=== PATIENT | male | born 1965 | race Caucasian/White ===

== ENCOUNTER 2017-01-03 07:16 | Observation (INO) | payer OTHER ==
[2017-01-03 08:06] LABS: Hematocrit 39 % (42-52); Hemoglobin 13.1 g/dl (14.0-18.0); Mean Corpuscular HGB Conc 34 g/dl (31-36); Mean Corpuscular Hemoglobin 27 pg (27-31); Mean Corpuscular Volume 80 fL (80-94); Red Blood Count 4.82 10^6/ul (4.0-5.4); Red Cell Distribution Width 16 % (10.5-15); White Blood Count 4.9 10^3/ul (3.5-10.8)
[2017-01-03 08:10] LABS: Comments Flag Yes
[2017-01-03] MEDS ORDERED: Lisinopril TAB* 10 MG PO ONE (08:11)
[2017-01-03] MEDS ORDERED: Diltiazem CD CAP* 240 MG PO ONE (08:11)
[2017-01-03 08:12] LABS: Add Diff/Slide Review? Slide Review Added
[2017-01-03 08:26] LABS: Albumin 4.3 g/dL (3.2-5.2); BUN/Creatinine Ratio 16.5 (8-20); Calcium 9.1 mg/dL (8.6-10.3); EGFR African American 104.9 (>60); EGFR Non-African American 81.6 (>60); Globulin 1.9 g/dL (2-4); Magnesium 1.6 mg/dL (1.9-2.7); Potassium 3.8 mmol/L (3.5-5.0); Total Bilirubin 1.3 mg/dL (0.2-1.0); Total Protein 6.2 g/dL (6.4-8.9)
--- NOTE | 2017-01-03 08:26 | RAD ---
INDICATION: Near syncope. COMPARISON: Comparison is made with a prior chest x-ray study from December 18, 2015. TECHNIQUE: A portable view of the chest was obtained. FINDINGS: Cardiac and mediastinal contours appear to be within normal limits. The lungs are underinflated with minimal atelectasis at both lung bases. The lungs are otherwise clear. No pleural effusion is seen. IMPRESSION: NO EVIDENCE FOR ACUTE FINDING.
[2017-01-03 08:46] LABS: TSH (Thyroid Stimulating Horm) 1.39 mcIU/mL (0.34-5.60)
[2017-01-03 08:53] LABS: Urine Bacteria Absent (Absent); Urine Bilirubin Negative (Negative); Urine Glucose 2+(150 mg/dL) (Negative); Urine Nitrite Negative (Negative)
[2017-01-03 09:26] LABS: Mean Platelet Volume 7 um3 (7.4-10.4)
[2017-01-03] MEDS ORDERED: Docusate CAP* 100 MG PO PRN (09:40)
[2017-01-03] MEDS ORDERED: Polyethylene Glycol 3350* 17 GM PACKET PO PRN (09:41)
[2017-01-03] MEDS ORDERED: diPHENhydraMINE PO* 50 MG PO PRN (09:42)
[2017-01-03] MEDS ORDERED: Dexamethasone IV* 8 MG in NS 0.9% 50 ML* 50 ML IVPB ONE (10:30)
[2017-01-03] MEDS: Insulin GLARGINE(*) 1 UNITS UNIT SUBCUT SCH (11:37)
[2017-01-03] MEDS: Enoxaparin(*) 40 MG/0.4 ML SYR SUBCUT SCH (11:37)
[2017-01-03] MEDS: Acetaminophen TAB* 325 MG PO PRN ×2 (12:13→18:18)
[2017-01-03] MEDS: Diltiazem CD CAP* 240 MG PO SCH (12:23)
[2017-01-03] MEDS: glipiZIDE TAB* 5 MG PO SCH (12:27)
[2017-01-03] MEDS: Sertraline* 50 MG TAB PO SCH (12:28)
[2017-01-03] MEDS: Allopurinol TAB* 300 MG PO SCH (12:28)
[2017-01-03] MEDS: levETIRAcetam TAB* 500 MG PO SCH ×2 (12:29→21:34)
--- NOTE | 2017-01-03 15:47 | ECHO ---
Patient: ROEL HILL [facility] Rec#: [id number] : 1965 Date: 01/03/2017 Age: 51y Height: 182.88 cm / 72.0 in Weight: 101.6 kg / 223.9 lbs Sex: M BSA: 2.24 Room#: 432 Admit Date#: 01/03/2017 Type: Inpatient Referring: GORDON Corona Reading: Tyshawn Alvarez MD Clasp Machine Operator: Janice Dale [facility] Transthoracic Echocardiogram Indication: Syncope BP: 155/89 HR: 94 Rhythm: NSR Findings History: Glioblastoma with chemo,radiation rx, DM,HTN,gout,depression,seizures. Technical Comments: The study quality is fair. Completed at 1545. The study is technically limited due to patient body habitus. Left Ventricle: The left ventricular chamber size is normal. Global left ventricular wall motion and contractility are within normal limits. Left ventricular systolic function is at the lower limits of normal. The estimated ejection fraction is 50-55%. Abnormal left ventricular diastolic function is observed. Left Atrium: The left atrial chamber size is normal. Right Ventricle: The right ventricular cavity size is normal. The right ventricular global systolic function is normal. Right Atrium: The right atrial cavity size is normal. Aortic Valve: The aortic valve is trileaflet. There is no evidence of aortic regurgitation. There is no evidence of aortic stenosis. Mitral Valve: The mitral valve leaflets appear normal. There is a trace of mitral regurgitation. There is no evidence of mitral stenosis. Tricuspid Valve: The tricuspid valve leaflets are normal. There is a physiologic tricuspid regurgitation. Unable to estimate the right ventricular systolic pressure. Pulmonic Valve: The pulmonic valve appears normal. There is no evidence of pulmonic regurgitation. There is no pulmonic stenosis. Pericardium: The pericardium appears normal. Aorta: There is no dilatation of the ascending aorta. There is no dilatation of the aortic arch. There is no dilation of the aortic root. Pulmonary Artery: The main pulmonary artery appears normal. Venous: The inferior vena cava appears normal in size. There is an approximate 50% respiratory change in the inferior vena cava dimension. Summary: There are no significant changes when compared to the previous study done on 12/22/15 Conclusions Global left ventricular wall motion and contractility are within normal limits. Left ventricular systolic function is at the lower limits of normal. The estimated ejection fraction is 50-55%. The right ventricular global systolic function is normal. There is no evidence of aortic regurgitation. There is a trace of mitral regurgitation. There is a physiologic tricuspid regurgitation. Unable to estimate the right ventricular systolic pressure. The pericardium appears normal. Measurements Name Value Normal Range RVIDd (AP) 2D 2.6 cm (0.9 - 2.6) RVDdMajor (2D) 3.4 cm (2.2 - 4.4) RAd ISD 4CH 4.7 cm (3.4 - 4.9) RA (A4C)W 3.7 cm (2.9 - 4.6) IVSd (2D) 1.5 cm (0.6 - 1) LVPWd (2D) 1.2 cm (0.6 - 1) LVIDd (2D) 3.1 cm (3.6 - 5.4) LVIDs (2D) 2.6 cm - LV FS (2D) 16 % (25 - 45) Aortic Annulus 2.1 cm (1.4 - 2.6) Ao root diameter (2D) 3.4 cm (2.1 - 3.5) Ascending Ao 2.8 cm (2.1 - 3.4) Aortic arch 2.6 cm (1.8 - 3.4) Descending Ao 0.8 cm - LA dimension (AP) 2D 3.3 cm (2.3 - 3.8) LAd ISD 4CH 4.5 cm (2.9 - 5.3) LA ISD 4CH W 3.9 cm (2.5 - 4.5) Name Value Normal Range LA ESV SP 4CH (A/L) 37 ml - LA ESV SP 2CH (A/L) 29 ml - LA ESV BP (A/L) 36 ml - LA ESV BP (A/L) index 15.98 ml/m2 - LA ESV SP 4CH (MOD) 34 ml - LA ESV SP 2CH (MOD) 28 ml - Name Value Normal Range MV E-wave Vmax 0.8 m/sec - MV deceleration time 131 msec - MV A-wave Vmax 1 m/sec - MV E:A ratio 0.8 ratio - Name Value Normal Range AV Vmax 1.5 m/sec - AV VTI 28.8 cm - AV peak gradient 8.56 mmHg - AV mean gradient 5.09 mmHg - LVOT Vmax 1.2 m/sec - LVOT VTI 24.6 cm - LVOT peak gradient 6.15 mmHg - LVOT mean gradient 3.24 mmHg - Name Value Normal Range IVC diameter 1.7 cm - Name Value Normal Range PV Vmax 1.1 m/sec - PV peak gradient 5.07 mmHg -
--- NOTE | 2017-01-03 19:09 | HP ---
HISTORY AND PHYSICAL: DATE OF ADMISSION: 01/03/17 HISTORY OF PRESENT ILLNESS: Briefly, Mr. King is a 51-year-old right- handed white male, who originally in December 2015, while at work had tonic- clonic seizures and was diagnosed with GBM wild-type TP53, who had received 8 cycles of adjuvant Temodar radiation therapy and later switched to Optune, for which he became very frustrated and did not tolerate it. He was also placed on antiseizure medications Keppra 1500 mg twice daily and has been off steroid, Temodar and radiation therapy since the beginning of December. He had recently seen Dr. Main approximately 2 weeks ago and felt that he needed adjuvant therapy and had opted to have the Avastin therapy locally and saw Dr. Roe in consultation. Briefly over the weekend, the patient was seen in the emergency room for a syncopal episode. The patient said that he had gotten up to the bathroom, felt slightly dizzy, wanted to turn around and sit down at the toilet and subsequently became syncopal, his legs collapsed underneath of him and fell kind of on his left hip and was sent to the emergency room for evaluation. EKG , chest x-ray, and troponin are all negative for findings. He denies any fevers or chills or signs of any type of ensuing infection. He has noticed over the past 2 weeks that his weakness in his left leg has been progressively worse and he has noticed slight asymmetric feeling in the lips. He did have an MRI recently approximately 2 weeks ago, which did show progression of disease and a new tumor both in the surgical bed and around that area. I do not have those films or report to confirm that. PMHx: Anxiety, gout, DM, HTN, depression Alg: NKDA PSurgHx: Lap Choly, craniotomy MEDICATIONS: Reviewed and reconciled and include: 1. Zoloft 150 mg p.o. daily. Off Temodar, Kytril, Compazine. 2. Lisinopril 20 mg daily. Off Prilosec. 3. Takes Colace twice daily as needed for constipation. 4. Lantus 30 units subcutaneous daily. 5. Allopurinol 300 mg daily. 6. Diltiazem 240 mg daily. 7. Glipizide 5 mg p.o. daily. 8. Keppra 1500 mg p.o. b.i.d. REVIEW OF SYSTEMS: Constitutional, HEENT as per HPI. Respiratory: Dry cough since November but nothing progressive. Cardiac: Recent left chest pain comes and goes, nonpersistent. Gastrointestinal: No findings. Urinary: No findings. Skin: No findings. Psychological: History of depression and maintained on Zoloft. Musculoskeletal: Left leg and hip pain over the last 2 weeks with progressive weakness in the left leg. Neurological symptoms are stable except for the notable findings in the HPI. PHYSICAL EXAMINATION GENERAL: He is a well-appearing middle-aged man, in no apparent distress. He is pleasant and cooperative. He is having trouble word finding by speech. VITAL SIGNS: Recorded within the emergency room record. HEENT: A white to yellow exudate on the tongue. Pupils are equal and reactive to light and accommodation. There is a surgical excision right side of the head. PULMONARY: Nonlabored. Clear to auscultation anteriorly. NEURO: Mental status: The patient is awake. Speech is slightly slurred with difficulty with word finding, easily corrects with prompt. Cranial nerves are grossly intact. Motor: He has weakness in the left leg with ankle upgoing, downgoing is 5/5 and equal in both extremities. There is loss of range of motion in abduction in the hip, otherwise fluent movement with normal range of motion in the hip and leg. Gait was not evaluated as the patient was on a stretcher. According to Dr. Main's note, MRI brain done on 12/21/15 compared with MRI previously on 10/26 shows progression in new regions of the tumor and right frontal with contrast enhancement in progression with edema. ASSESSMENT AND PLAN: Mr. King is a 51-year-old white male with: 1. Glioblastoma multiforme, who is currently off all therapy at this time with progression of disease and edema with a syncopal episode for evaluation in the emergency room this morning. 2. 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 3. History of depression, controlled by Zoloft at his current dose. 4. Fatigue with left leg fatigue, progressive. 5. Syncopal episode. We will place him on telemetry and obtain a new echocardiogram since his last one was several months ago. Troponin and EKG were negative for findings. We will get any additional testing if there are significant findings on the echo. 6. DVT prophylaxis as per protocol. 7. MOLST status. The patient is a full code at this time. The above will be discussed with Dr. Disla as Dr. Roe is off today and he will be aware. GORDON OTOOLE [id number]/[facility] #: [id number] [facility]
[2017-01-04] MEDS ORDERED: oxyCODONE TAB* 5 MG TAB PO PRN (00:25)
[2017-01-04] MEDS ORDERED: CMCS: Melatonin (NF) 3 MG TAB PO PRN (00:25)
[2017-01-04] MEDS: Acetaminophen TAB* 325 MG PO PRN ×2 (00:28→10:02)
[2017-01-04 07:48] VITALS: BP 145/85
--- NOTE | 2017-01-04 08:09 | ED ---
Haja Lucas Adam, scribed for Devin Montoya MD on 01/03/17 at 0822 . Syncope/Near Syncope - HPI Summary HPI Summary: 51 year old male arrived to [facility] after near syncope this morning. He reports feeling hot, sweaty, sleepy, "dizzy", and off-balance. He vomited this morning after his fall, but denies any fever, chills, diarrhea, or any injuries. He has no PMHx of a stroke. The pt was diagnosed with glioblastoma approximately 1 year ago (12/2015), and since has felt a progressive loss of balance and weakness on his left side. This has been exacerbated in the past two weeks, after he was diagnosed with a second tumor, and the patient reports difficulty walking and moving his left extremities. He has a cane (but does not use it often at home), and takes anticoagulants for his blood pressure. Additionally, he regularly sees Dr. Fuller (oncologist). - History Of Current Complaint Chief Complaint: EDSyncope Time Seen by Provider: 01/03/17 07:18 Hx Obtained From: Patient Onset/Duration: Gradual Onset, Resolved - Resolved after changing position ( standing up) Timing: Minutes Activity At Onset: Unknown Associated Head Trauma: No Aggravating Factor(s): Nothing Alleviating Factor(s): Position Change Associated Signs And Symptoms: Diaphoresis, Dizzy, Lightheadedness, Vomiting, Weakness - Allergies/Home Medications Allergies/Adverse Reactions: Allergies Allergy/AdvReac Type Severity Reaction Status Date / Time No Known Allergies Allergy Verified 01/19/16 10:34 Home Medications: Home Medications levETIRAcetam TAB* [Keppra TAB*] 1,500 mg PO BID 01/03/17 [History Confirmed ] PMH/Surg Hx/FS Hx/Imm Hx Endocrine/Hematology History: Reports: Hx Diabetes Cardiovascular History: Reports: Hx Hypertension Denies: Hx Pacemaker/ICD Respiratory History: Reports: Hx Seasonal Allergies Denies: Hx Asthma GI History: Reports: Hx Gall Bladder Disease - current, Hx Jaundice - current History: Denies: Hx Renal Disease Musculoskeletal History: Reports: Hx Gout, Other Musculoskeletal History - GOUT Sensory History: Denies: Hx Hearing Aid Neurological History: Reports: Hx Migraine, Hx Seizures Psychiatric History: Reports: Hx Anxiety, Hx Depression Denies: Hx Panic Disorder - Cancer History Cancer Type, Location and Year: GLIOBLASTOMA - REMOVED 02/04/16 Hx Chemotherapy: - AFTER MRI Hx Radiation Therapy: - AFTER MRI - Surgical History Surgery Procedure, Year, and Place: GALLBLADDER 03/20. 02/04/16 - CRANIOTOMY - [facility] Infectious Disease History: No Infectious Disease History: Denies: Traveled Outside the [place] in Last 30 Days - Family History Known Family History: Positive: Cardiac Disease, Hypertension - Social History Lives: With Family - Alcohol Use: Occasionally Alcohol Amount: 3X week Hx Substance Use: No Substance Use Type: Reports: None Hx Tobacco Use: No Smoking Status (MU): Never Smoked Tobacco Review of Systems Positive: Skin Diaphoresis. Negative: Fever, Chills Negative: Erythema Negative: Sore Throat Negative: Chest Pain Negative: Shortness Of Breath, Cough Positive: Vomiting, Nausea. Negative: Abdominal Pain, Diarrhea Negative: dysuria, hematuria Positive: Decreased ROM. Negative: Myalgia, Edema Negative: Rash Neurological: Other - "Dizziness" Positive: Weakness. Negative: Syncope - near syncope All Other Systems Reviewed And Are Negative: Yes Physical Exam - Summary Physical Exam Summary: Constitutional: Well-developed, Well-nourished, Alert. (-) Distressed Skin: Warm, Dry HENT: Eyes: Conjunctiva normal Neck: Musculoskeletal ROM normal neck. (-) JVD, (-) Stridor, (-) Tracheal deviation Cardio: Rhythm regular, rate normal, Heart sounds normal; Intact distal pulses; The pedal pulses are 2+ and symmetric. Radial pulses are 2+ and symmetric. (-) Murmur Pulmonary/Chest wall: Effort normal. (-) Respiratory distress, (-) Wheezes, (-) Rales Abd: Soft. (-) Tenderness, (-) Distension, (-) Guarding, (-) Rebound Musculoskeletal: (-) Edema Lymph: (-) Cervical adenopathy Neuro: Alert, Oriented x3, Left Protonator Drift (+), Left sided weakness. Bilateral lower extremity strength is 4/5. Cranial nerves II-XII are grossly intact. (-) Dysmetria, (-) Nystagmus, (-) Ataxia by finger to nose testing, (-) Sensory deficit. Psych: Mood and affect Normal Triage Information Reviewed: Yes Vital Signs On Initial Exam: Initial Vitals Temp Pulse Resp BP Pulse Ox 98.1 F 101 16 180/94 99 02/27/17 07:20 01/03/17 07:20 01/03/17 07:20 01/03/17 07:20 01/03/17 07:20 Vital Signs Reviewed: Yes - Wili Coma Scale Coma Scale Total: 15 Diagnostics - Vital Signs Vital Signs Temp Pulse Resp BP Pulse Ox 01/03/17 07:20 98.1 F 101 16 180/94 99 - Laboratory Result Diagrams: 01/03/17 07:54 01/03/17 07:54 Lab Statement: Any lab studies that have been ordered have been reviewed, and results considered in the medical decision making process. - Radiology CXR Radiology Interpretation Completed By: Radiologist - IMPRESSION: NO EVIDENCE FOR ACUTE FINDING. - EKG 07:46 Cardiac Rate: NL - 98 bpm EKG Rhythm: Sinus Rhythm Ectopy: None EKG Interpretation: no STEMI - Additional Comments Diagnostic Additional Comments: Troponin I - 0.00 Course/Dx - Diagnoses Provider Diagnoses: Near syncope, Glioblastoma multiforme Discharge - Discharge Plan Condition: Stable Disposition: ADMITTED TO [facility] documentation as recorded by the Haja turcios Adam accurately reflects the service I personally performed and the decisions made by , Devin Montoya MD.
[2017-01-04] MEDS: Allopurinol TAB* 300 MG PO SCH (08:24)
[2017-01-04] MEDS: Diltiazem CD CAP* 240 MG PO SCH (08:25)
[2017-01-04] MEDS: levETIRAcetam TAB* 500 MG PO SCH (08:29)
[2017-01-04] MEDS: glipiZIDE TAB* 5 MG PO SCH (08:29)
[2017-01-04] MEDS: Sertraline* 50 MG TAB PO SCH (08:30)
[2017-01-04] MEDS: Insulin GLARGINE(*) 1 UNITS UNIT SUBCUT SCH (10:03)
--- NOTE | 2017-01-04 10:12 | PN ---
Progress Note - Progress Note SOAP: Subjective: []Fell yesterday in bathroom, just before bowl movement. Lost balance getting on toilet and then fell on curtain. Did not become confused, did "black out" briefly. Could not get up and had BM on floor. No involuntary urination. Has had progressive weakness left side over 4 weeks. MRI 2 weeks ago w/ progressive disease. Had breakthrough seizures in the past, different from this episode. Acetaminophen (Tylenol Tab*) 650 mg PO Q6H PRN PRN Reason: PAIN OR TEMP > 100.5F Last Admin: 01/04/17 10:02 Dose: 650 mg Allopurinol (Zyloprim Tab*) 300 mg PO DAILY [facility] Last Admin: 01/04/17 08:24 Dose: 300 mg Diltiazem HCl (Cardizem Cd Cap*) 240 mg PO DAILY [facility] Last Admin: 01/04/17 08:25 Dose: 240 mg Diphenhydramine HCl (Benadryl Po*) 50 mg PO BEDTIME PRN PRN Reason: SLEEP Last Admin: 01/03/17 21:34 Dose: 50 mg Docusate Sodium (Colace Cap*) 100 mg PO BID PRN PRN Reason: CONSTIPATION Enoxaparin Sodium (Lovenox(*)) 40 mg SUBCUT Q24H [facility] Last Admin: 01/03/17 11:37 Dose: 40 mg Glipizide (Glucotrol Tab*) 5 mg PO DAILY WITH MEAL [facility] Last Admin: 01/04/17 08:29 Dose: 5 mg Insulin Glargine (Lantus(*)) 30 units SUBCUT Q24H [facility] Last Admin: 01/04/17 10:03 Dose: 30 units Levetiracetam (Keppra Tab*) 1,500 mg PO BID [facility] Last Admin: 01/04/17 08:29 Dose: 1,500 mg Melatonin (Melatonin (Nf)) 3 mg PO BEDTIME PRN PRN Reason: SLEEP Last Admin: 01/04/17 00:42 Dose: 3 mg Oxycodone HCl (Roxycodone Tab*) 5 mg PO Q4H PRN PRN Reason: PAIN Last Admin: 01/04/17 02:18 Dose: 5 mg Polyethylene Glycol/Electrolytes (Miralax*) 17 gm PO DAILY PRN PRN Reason: CONSTIPATION Sertraline HCl (Zoloft*) 150 mg PO DAILY [facility] Last Admin: 01/04/17 08:30 Dose: 150 mg Objective: [] Vital Signs Temp Pulse Resp BP Pulse Ox 97.4 F 75 16 145/85 97 01/04/17 07:20 01/04/17 07:20 01/04/17 07:20 01/04/17 07:20 01/04/17 07:20 HEENT - negative Neuro - strength 4/5 left side, 5/5 right. AAOx3, did not walk him. Walked this am with nurse around floor CTA RRR S1S2 +BS, NT/NT Ext w/o C/c/e Assessment: []51 year old with progressive GBM, left side weakness. Appears he lost balance in bathroom, vaso vagul, then did not have strength to correct. Plan: []1. Will try and have him go home today - Walker and call button at home 2. Start Avastin, will discuss with Bina in office, treat this week 3. Dex 4 mg po bid, start this am 4. MRI 2 weeks ago and will not repeat today.
[2017-01-04] MEDS: Enoxaparin(*) 40 MG/0.4 ML SYR SUBCUT SCH (11:30)
--- NOTE | 2017-01-05 03:49 | DS ---
DISCHARGE SUMMARY: ADDENDUM: DATE OF ADMISSION: 01/03/17 DATE OF DISCHARGE: 01/04/17 Discharged for OBV admission, admitted at approximately 5 p.m. yesterday. Being discharged home at 10 a.m. today. He was hydrated overnight and kept on telemetry. No additional episodes of syncope and no events. Workup negative. He feels better this morning and did walk with the nurse without difficulty. Relevant tests: Echocardiogram; structurally normal left ventricle, normal ejection fraction, no significant valvular disease. Telemetry: No events. We are going to give him a walker and a call button on discharge. He will follow up in the office tomorrow to start his chemotherapy with Avastin. The only change in his medicine is going to be addition of dexamethasone 4 mg p.o. b.i.d., and I am going to ask him to hold his lisinopril and hydrochlorothiazide until further notice. [id number]/[facility] #: [id number] [facility]
== END 2017-01-04 11:50 | disposition home or self-care (01) ==
LOC: ED 07:16 → MEDTELE 09:26 → INTOOBSV 09:26
PROVIDERS: ADMIT Internal Medicine Hematology & Oncology; ATTEND Internal Medicine Hematology & Oncology
DX: C71.9 Malignant neoplasm of brain, unspecified (principal); R56.9 Unspecified convulsions; R53.83 Other fatigue; R55 Syncope and collapse; E11.9 Type 2 diabetes mellitus without complications; I10 Essential (primary) hypertension; M10.9 Gout, unspecified; F41.9 Anxiety disorder, unspecified; F32.9 Major depressive disorder, single episode, unspecified
CPT/HCPCS: 36415; 71010; 80053; 81003; 81015; 83605; 83735; 84443; 84484; 85025; 85060; 93005; 93306; 99217; 99222; 99283; A9270-GY; G0378; J1100; J1650